=== PATIENT | male | born 2000 | race African-American/Black ===

== ENCOUNTER 2023-05-23 04:32 | Emergency (ER) | payer SELFPAY ==
[2023-05-23 05:17] LABS: Bilirubin Neg (Negative); Blood, Urine Negative (Negative); Clarity Clear (Clear); Glucose, Urine (Dipstick) Normal (Negative); Ketone, Urine Negative (Negative); Leukocyte 25 (Negative); Nitrite Negative (Negative); Protein, Urine (Dipstick) 15 mg/dl (Neg-Trace)
[2023-05-23 05:21] LABS: Bacteria/HPF None Seen HPF (None Seen); CAUTI Indications for Culture Dysuria,urgency,freq; RBC/HPF None Seen HPF (0-3); Squamous Epithelial 0-3 HPF (0-3); WBC/HPF 0-3 HPF (0-3)
[2023-05-23 05:22] LABS: Urine Culture Reflex No No
[2023-05-23] MEDS ORDERED: cefTRIAXone (ROCEPHIN) 500 MG VIAL ONE (05:28)
[2023-05-23] MEDS ORDERED: Sterile Water 10 ML ONE (05:29)
[2023-05-23 20:03] LABS: Chlam.trachomatis by PCR,Urine Not Detected (NotDetected); GC N.gonorrhoeae PCR,UrineVOID Not Detected (NotDetected)
== END 2023-05-23 05:52 | disposition home or self-care (01) ==
LOC: CSHERS 04:32
DX: N34.1 Nonspecific urethritis (principal)
CPT/HCPCS: 81001; 87491; 87591; 96372; 99283; J0696